=== PATIENT | female | born 1990 | race Caucasian/White ===

== ENCOUNTER 2018-04-10 05:05 | Emergency (ER) | payer OTHER ==
[2018-04-10] MEDS ORDERED: LEVO50TA86 PO (05:16)
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
--- NOTE | 2018-04-10 05:46 | RADIOLOGY IMAGING REPORT ---
FACILITY: [facility] - [place] PATIENT NAME: Mindi Rincon : 1990 MR: [id number] V: [id number] EXAM DATE: ORDERING PHYSICIAN: SHAE SALAS TECHNOLOGIST: Location: [facility] - [place] Patient: Mindi Rincon : 1990 Visit/Account:[id number] Date of Sevice: 04/10/2018 INDICATION: Right wrist/forearm pain after a fall. EXAM DATE: 04/10/2018 5:17 AM COMPARISON: None. FINDINGS: 2 views right forearm, 3 views right wrist. Mineralization is normal. No acute alignment abnormality or fracture. Soft tissues are unremarkable. There is an impacted distal fracture of the radius with approximately 2 mm lateral displacement. No additional fracture or dislocation. There is soft tissu e swelling about the distal forearm/proximal wrist. IMPRESSION: Impacted and mildly displaced distal fracture of the right radius. Report Dictated By: Gustabo Linda MD at 04/10/2018 5:39 AM Report E-Signed By: Gustabo Linda MD at 04/10/2018 5:42 AM WSN:[id number]
--- NOTE | 2018-04-10 05:46 | RADIOLOGY IMAGING REPORT ---
FACILITY: [facility] PATIENT NAME: Mindi Rincon : 1990 MR: [id number] V: [id number] EXAM DATE: ORDERING PHYSICIAN: SHAE SALAS TECHNOLOGIST: [place] [facility] [place]: Mindi Rincon : 1990 Visit/Account:[id number] Date of Sevice: 04/10/2018 INDICATION: Right wrist/forearm pain after a fall. EXAM DATE: 04/10/2018 5:17 AM COMPARISON: None. FINDINGS: 2 views right forearm, 3 views right wrist. Mineralization is normal. No acute alignment abnormality or fracture. Soft tissues are unremarkable. There is an impacted distal fracture of the radius with approximately 2 mm lateral displacement. No additional fracture or dislocation. There is soft tissu e swelling about the distal forearm/proximal wrist. IMPRESSION: Impacted and mildly displaced distal fracture of the right radius. Report Dictated By: Gustabo Linda MD at 04/10/2018 5:39 AM Report E-Signed By: Gustabo Linda MD at 04/10/2018 5:42 AM WSN:[id number]
[2018-04-10 06:00] VITALS: BP 126/87
[2018-04-10] MEDS ORDERED: LOR5/325 PO (06:17)
[2018-04-10] MEDS ORDERED: ACET/HYDROC 5/325MG TH ER ONLY 2 TAB/BOTTLE PO ONE (06:20)
== END 2018-04-10 06:26 | disposition home or self-care (01) ==
LOC: ER 06:04
DX: S52.571A Other intraarticular fracture of lower end of right radius, initial encounter for closed fracture (principal); V19.3XXA Pedal cyclist (driver) (passenger) injured in unspecified nontraffic accident, initial encounter; Y93.55 Activity, bike riding
CPT/HCPCS: 29125; 73090; 73110; 99284; A4565

== ENCOUNTER → 2018-09-27 | Outpatient (CLI) | payer OTHER ==
[~2018-09-27] MED LIST: LEVO50TA86 PO; LOR5/325 PO
--- NOTE | 2018-09-27 15:32 | RADIOLOGY IMAGING REPORT ---
FACILITY: [facility] PATIENT NAME: Mindi Rincon : 1990 MR: [id number] V: [id number] EXAM DATE: [id number] ORDERING PHYSICIAN: MURRAY ENRIQUEZ TECHNOLOGIST: Location: [facility] - [place] Patient: Mindi Rincon : 1990 Visit/Account:[id number] Date of Sevice: 09/27/2018 THYROID HISTORY: Thyroid enlargement, elevated TSH COMPARISON: None. FINDINGS: SIZE: Normal. Right lobe: 4.6 x 2.3 x 2.1 cm Left lobe: 4.1 x 1.8 x 2.2 cm Isthmus: 7 mm PARENCHYMA: Both lobes appear diffusely heterogeneous NODULES: Right lobe: * None discrete. Left lobe: * None discrete. Isthmus: * None discrete. VASCULARITY: Increased bilaterally ADDITIONAL FINDINGS: None. IMPRESSION: Both lobes appear diffusely heterogeneous and hypervascular although discrete nodules not demonstrate d REFERENCE: 2015 [place] [employer] Management Guidelines for Adult Patients with Thyroid Nodules and D ifferentiated Thyroid Cancer: The [place] [employer] Guidelines Task Force on Thyroid Nodul es and Differentiated Thyroid Cancer. SONOGRAPHIC PATTERNS: * Benign: Purely cystic nodules (no solid component); estimated risk of malignancy <1 percent; no bi opsy recommended. * Very Low Suspicion: Spongiform or partially cystic nodules without any of the sonographic features described in low, intermediate, or high suspicion patterns; estimated risk of malignancy <3 percent; consider FNA at > 2 cm (Observation without FNA is also a reasonable option). * Low Suspicion: Isoechoic or hyperechoic solid nodule, or partially cystic nodule with eccentric so lid areas, without microcalcification, irregular margin or ETE (extra-thyroidal extension), or taller than wide shape; estimated risk of malignancy 5-10 percent; recommend FNA at >1.5 cm. * Intermediate Suspicion: Hypoechoic solid nodule with smooth margins without microcalcifications, E TE (extra-thyroidal extension), or taller than wide shape; estimated risk of malignancy 10-20 percent ; recommend FNA at > 1 cm. * High Suspicion: Solid hypoechoic nodule or solid hypoechoic component of a partially cystic nodule with one or more of the following features: irregular margins (infiltrative, microlobulated), microc alcifications, taller than wide shape, rim calcifications with small extrusive soft tissue component, evidence of ETE (extra-thyroidal extension); estimated risk of malignancy >70-90 percent; recommend FNA at > 1 cm. NOTES: * Although a sonographically suspicious subcentimeter thyroid nodule without evidence of extrathyroi harpreet extension or sonographically suspicious lymph nodes may be observed with close sonographic follow -up rather than pursuing immediate FNA, patient age and preference may modify decision-making. A > 50% interval increase in nodule volume and/or development of new suspicious sonographic features are felt to be a valid reasons for potential re-aspiration of a nodule previously shown to have benig n FNA cytology. Report Dictated By: Juliane Bhardwaj MD at 09/27/2018 3:24 PM Report E-Signed By: Juliane Bhardwaj MD at 09/27/2018 3:26 PM WSN:[email or web address]
== END ==
LOC: US 01:44
PROVIDERS: ATTEND Nurse Practitioner Family
DX: E07.89 Other specified disorders of thyroid (principal)
CPT/HCPCS: 76536